=== PATIENT | male | born 1970 | race Asian ===

== ENCOUNTER 2021-11-13 13:24 | Emergency (ER) | payer OTHER ==
[2021-11-13 13:48] VITALS: BP 124/84; PULSE 94; TEMP 98.2; BMI 25.0
[2021-11-13] MEDS ORDERED: KETOROLAC TROMETHAMINE 30 MG/1 ML VIAL IM ONE (14:10)
[2021-11-13] MEDS ORDERED: KETOROLAC TROMETHAMINE 30 MG/1 ML VIAL ONE (14:21)
== END 2021-11-13 15:41 | disposition home or self-care (01) ==
LOC: JER 13:24
PROC: 3E0233Z Introduction of Anti-inflammatory into Muscle, Percutaneous Approach (ICD-10-PCS; principal; 2021-11-13)
DX: R07.9 Chest pain, unspecified (principal); R05.1 Acute cough; R09.81 Nasal congestion
CPT/HCPCS: 71046-TC-FY; 93005; 93010; 96372; 99284-25